=== PATIENT | female | born 1985 | race Hispanic/Latino ===

== ENCOUNTER 2024-11-22 06:56 | Emergency (ER) | payer BC ==
--- NOTE | 2024-11-22 07:52 | RAD REPORT ---
EXAM: Transvaginal OB HISTORY: ABD PAIN COMPARISON: None TECHNIQUE: Multiple grayscale and color Doppler images were obtained in a transabdominal and transvag inal pelvic ultrasound. Spectral analysis of the Doppler waveforms of the ovaries were performed. FINDINGS: UTERUS: No IUP identified. No free fluid is seen in the pelvis. RIGHT OVARY: Corpus luteum in the right ovary. Vascular flow present. LEFT OVARY: Normal flow without focal mass. IMPRESSION: No IUP identified. Therefore, cannot exclude early normal first trimester , failed first tri mester , or early ectopic. Bilateral ovarian blood flow present.
[2024-11-22 07:55] LABS: Absolute Eosinophils 0.1 K/uL (0-0.5); Absolute Lymphocytes (CBC) 1.7 K/uL (0.7-4.9); Absolute Monocytes 0.6 K/uL (0.1-1.3); Absolute Neutrophil 4.3 K/uL (1.8-8.0); Basophils % 0.5 % (0-1.3); Eosinophils % 1.4 % (0-4.4); Hematocrit 42.2 % (36.0-45.0); Hemoglobin 14.6 g/dL (12.0-15.0); Lymphocytes % 25.5 % (15.3-44.8); MCH 28.9 pg (27.0-35.0); MCHC 34.7 g/dL (32.0-36.0); MCV 83.4 fL (80-100); MPV 9.4 fL (7.6-11.3); Monocytes % 8.5 % (3.3-12.3); Neutrophils % 64.1 % (41.7-73.7); Nucleated Red Blood Cells % 0.1 % (0-0); Platelets 291 thou/uL (152-406); RBC Red Blood Cell Count 5.07 M/uL (3.86-4.86); Red Cell Distribution Width 13.2 % (12.1-15.2)
[2024-11-22 08:08] LABS: Anion Gap 11.7 mEq/L (5.0-15.0)
[2024-11-22 08:12] LABS: Potassium 3.7 mEq/L (3.5-5.1)
[2024-11-22 08:19] LABS: Specific Gravity > 1.030 (1.005-1.030); Sqamous Epithelial 20-50 /HPF (None Seen); Urine Bacteria 20-50 /HPF (<20); Urine Bilirubin NEGATIVE (Negative); Urine Blood 3+ (OVER) (Negative); Urine Clarity Extremely Turbid (Clear); Urine Color Light-Brown (Yellow); Urine Culture Reflex Order NOT NEEDED; Urine Glucose 4+ (Over) (Negative); Urine Ketones TRACE (Negative); Urine Microscopic Reflex YN ORDER UMIC; Urine Mucus Slight /HPF (None Seen); Urine Nitrite NEGATIVE (Negative); Urine Protein 1+ (Negative); Urine RBC 21-50 /HPF (None Seen); Urine Urobilinogen Normal (Normal); Urine WBC 20-50 /HPF (<5); Urine pH 5.5 (5.0-7.0)
--- NOTE | 2024-11-22 08:43 | EDPHYS ---
Physician Documentation [facility] Name: Blanca Carvajal Age: 39 yrs Sex: Female : 1985 Arrival Date: 11/22/2024 Time: 06:56 Bed 5 Private MD: ED Physician Rui Tillman HPI: 11/22 07:47 This 39 yrs old Female presents to ER via Ambulatory with complaints of ms3 Abdominal Pain, Low Back Pain. 07:47 39-year-old female with past medical history of diabetes presents to the emergency ms3 department for lower abdominal pain that began at 10 AM. Patient states she had a positive urine test on Wednesday when she developed abdominal pain and bleeding. Patient states symptoms resolved on Wednesday and returned at 10 AM yesterday. Patient states her pain is an 8/10. Patient states she has taken Tylenol without relief. Patient notes her last menstrual period is October 14, 2024. Patient states she is a -0-2-3.. [employer]: 07:16 LMP 10/14/2024, Verified, EDC 07/21/2025, Gestational age from LMP: 5 weeks 4 cm10 days Historical: - Allergies: 07:16 No Known Allergies; cm10 - PMHx: 07:16 Diabetes mellitus; cm10 - Immunization history:: Adult Immunizations up to date. - Infectious Disease History:: Denies. - Social history:: Smoking status: Patient denies any tobacco usage or history of. ROS: 07:47 Constitutional: Negative for fever, and chills. Cardiovascular: Negative for chest ms3 pain, and palpitations. Respiratory: Negative for shortness of breath, cough, wheezing, and pleuritic chest pain, 07:47 Abdomen/GI: Positive for abdominal pain, 07:47 : Positive for vaginal bleeding, Exam: 07:47 Constitutional: This is a well developed, well nourished patient who is awake, alert, ms3 and in no acute distress. Cardiovascular: Regular rate and rhythm with a normal S1 and S2. No gallops, murmurs, or rubs. Normal PMI, no JVD. No pulse deficits. Respiratory: Lungs have equal breath sounds bilaterally, clear to auscultation and percussion. No rales, rhonchi or wheezes noted. No increased work of breathing, no retractions or nasal flaring. Abdomen/GI: Soft, non-tender, with normal bowel sounds. No distension or tympany. No guarding or rebound. No evidence of tenderness throughout. Skin: Warm, dry with normal turgor. Normal color with no rashes, no lesions, and no evidence of cellulitis. MS/ Extremity: Pulses equal, no cyanosis. Neurovascular intact. Full, normal range of motion. Vital Signs: 07:14 BP 145 / 86; Pulse 83; Resp 15; Temp 99.6(O); Pulse Ox 99% on R/A; Weight 67.59 kg; cm10 Height 5 ft. 1 in. ; Pain 8/10; 08:30 BP 131 / 91; Pulse 75; Resp 15; Pulse Ox 100% on R/A; cm10 07:14 Body Mass Index 28.15 (67.59 kg, 154.94 cm) cm10 07:14 Pain Scale: Adult cm10 MDM: 07:14 Medical Screening Exam initiated ms3 07:51 Differential diagnosis: threatened Ab, ectopic , non-specific abd pain. ms3 14:54 Data reviewed: vital signs, nurses notes, lab test result(s), radiologic studies, and ms3 as a result, I will discharge patient. Counseling: I had a detailed discussion with the patient and/or guardian regarding the historical points, exam findings, and any diagnostic results supporting the discharge/admit diagnosis, lab results, radiology results, the need for outpatient follow up, to return to the emergency department if symptoms worsen or persist or if there are any questions or concerns that arise at home. Special discussion: I discussed with the patient/guardian in detail that at this point there is no indication for admission to the hospital. It is understood, however, that if the symptoms persist or worsen the patient needs to return immediately for re-evaluation. ED course: Discussed quantitative hCG of 60 with patient. No intrauterine identified. Discussed necessity with patient to follow-up with [employer] in 2 to 3 days. Patient understands and agrees with plan. All questions were answered. Return precautions discussed include shortness of breath, lightheadedness, worsening pain, worsening symptoms, or any other concerns.. 11/22 07:14 Order name: Abo/rh Typing; Complete Time: 08:24 ms3 11/22 07:14 Order name: Basic Metabolic Panel; Complete Time: 08:24 ms3 11/22 07:14 Order name: CBC with Diff; Complete Time: 08:24 ms3 11/22 07:14 Order name: Test, Serum; Complete Time: 08:24 ms3 11/22 07:14 Order name: Quantitative Hcg; Complete Time: 08:24 ms3 11/22 07:32 Order name: Urinalysis w/ reflexes; Complete Time: 08:24 cm10 11/22 07:14 Order name: US Transvaginal Ob; Complete Time: 07:56 ms3 11/22 07:14 Order name: IV Saline Lock; Complete Time: 07:33 ms3 11/22 07:14 Order name: Labs collected and sent; Complete Time: 07:33 ms3 11/22 07:14 Order name: NPO; Complete Time: 07:14 ms3 11/22 07:38 Order name: Labs - recollect needed: recollect abo\E\rh no charge; Complete Time: 07:53 bd Administered Medications: No medications were administered Disposition Summary: 11/22/24 08:43 Discharge Ordered Notes: Location: Home ms3 Condition: Stable ms3 Diagnosis - Positive test ms3 - Abnormal uterine and vaginal bleeding, unspecified ms3 - Lower abdominal pain, unspecified ms3 - Essential (primary) hypertension ms3 Followup: ms3 - With: Private Physician - When: 2 - 3 days - Reason: Re-evaluation by your physician Discharge Instructions: - Discharge Summary Sheet ms3 - Abdominal Pain, Adult ms3 - Abdominal Pain During ms3 - Threatened Miscarriage, [id number] ms3 Forms: - Medication Reconciliation Form ms3 - Antibiotic Education ms3 - Prescription Opioid Use ms3 - Patient Portal Instructions ms3 - Leadership Thank You Letter ms3 Signatures: Dispatcher [employer] EDMS Sandrine Navas Lynsay, RN RN ll1 Rui Tillman DO DO ms3 Jovanna Murillo RN RN cm10 Corrections: (The following items were deleted from the chart) 07:14 07:14 ABO/RH TYPING+BB.LAB.BRZ ordered. EDMS EDMS 07:14 07:14 BASIC METABOLIC PANEL+C.LAB.BRZ ordered. EDMS EDMS 07:14 07:14 CBC+H.LAB.BRZ ordered. EDMS EDMS 07:14 07:14 TEST, SERUM+SC.LAB.BRZ ordered. EDMS EDMS 07: 07:14 Transvaginal Ob+US.RAD.BRZ ordered. EDMS EDMS 07:15 07:14 QUANTITATIVE HCG+C.LAB.BRZ ordered. EDMS EDMS 07:32 07:32 Urinalysis+U.LAB.BRZ ordered. EDMS EDMS
--- NOTE | 2024-11-22 08:43 | ER ---
Nurse's Notes [facility] Name: Blanca Carvajal Age: 39 yrs Sex: Female : 1985 Arrival Date: 11/22/2024 Time: 06:56 Bed 5 Private MD: Diagnosis: Positive test;Abnormal uterine and vaginal bleeding, unspecified;Lower abdominal pain, unspecified;Essential (primary) hypertension Presentation: 11/22 07:06 Ebola Screen: Patient denies travel to an Ebola-affected area in the 21 days before ll1 illness onset. Initial Sepsis Screen: Does the patient meet any 2 criteria? No. Patient's initial sepsis screen is negative. Does the patient have a suspected source of infection? No. Patient's initial sepsis screen is negative. Risk Assessment: Do you want to hurt yourself or someone else? Patient reports no desire to harm self or others. 07:06 Method Of Arrival: Ambulatory 1 07:06 Acuity: RICARDO 3 1 07:14 Chief complaint: Patient states: Positive test Wednesday. Pt reports having cm10 vaginal bleeding on Wednesday and low abdominal pain onset yesterday. Coronavirus screen: Client denies travel out of the [place] in the last 14 days. Onset of symptoms was November 22, 2024. Triage Assessment: 07:16 General: Appears in no apparent distress. uncomfortable, Behavior is calm, cooperative. cm10 Pain: Complains of pain in right lower quadrant and left lower quadrant Pain currently is 8 out of 10 on a pain scale. Quality of pain is described as aching, pressure. Neuro: No deficits noted. Level of Consciousness is awake, alert, obeys commands, Oriented to person, place, time, situation, Appropriate for age. Respiratory: No deficits noted. Airway is patent Respiratory effort is even, unlabored, Respiratory pattern is regular, symmetrical. : Reports vaginal bleeding that is. STRADDLE BUG: 07:16 LMP 10/14/2024, Verified, EDC 07/21/2025, Gestational age from LMP: 5 weeks 4 cm10 days Historical: - Allergies: 07:16 No Known Allergies; cm10 - PMHx: 07:16 Diabetes mellitus; cm10 - Immunization history:: Adult Immunizations up to date. - Infectious Disease History:: Denies. - Social history:: Smoking status: Patient denies any tobacco usage or history of. Screenin:[address] [facility] ED Fall Risk Assessment (Adult) History of falling in the last 3 months, cm10 including since admission No falls in past 3 months (0 pts) Confusion or Disorientation No (0 pts) Intoxicated or Sedated No (0 pts) Impaired Gait No (0 pts) Mobility Assist Device Used No (0 pt) Altered Elimination No (0 pt) Score/Fall Risk Level 0 - 2 = Low Risk Oriented to surroundings, Maintained a safe environment, Hourly rounding (assess needs \T\ fall precautionary measures) done. Abuse screen: Denies threats or abuse. Denies injuries from another. Nutritional screening: No deficits noted. Tuberculosis screening: No symptoms or risk factors identified. Assessment: 07:21 General: SEE TRIAGE ASSESSMENT. cm10 08:44 Reassessment: Patient appears in no apparent distress at this time. Patient and/or cm10 family updated on plan of care and expected duration. Pain level reassessed. Patient is alert, oriented x 3, equal unlabored respirations, skin warm/dry/pink. 08:51 GI: cm10 Vital Signs: 07:14 BP 145 / 86; Pulse 83; Resp 15; Temp 99.6(O); Pulse Ox 99% on R/A; Weight 67.59 kg; cm10 Height 5 ft. 1 in. ; Pain 8/10; 08:30 BP 131 / 91; Pulse 75; Resp 15; Pulse Ox 100% on R/A; cm10 07:14 Body Mass Index 28.15 (67.59 kg, 154.94 cm) cm10 07:14 Pain Scale: Adult cm10 ED Course: 07:01 Patient arrived in ED. gm2 07:02 Arm band placed on Patient placed in an exam room, on a stretcher. ll1 07:06 Triage completed. ll1 07:08 Jovanna Murillo, OMAR is Primary Nurse. cm10 07:09 Rui Tillman DO is Attending Physician. ms3 07:17 Patient has correct armband on for positive identification. Bed in low position. Call cm10 light in reach. Side rails up X2. Pulse ox on. NIBP on. 07:34 Warm blanket given. am7 07:34 Inserted saline lock: 20 gauge in right antecubital area, using aseptic technique. am7 Blood collected. Flushed with 10 mL NS. 07:44 US Transvaginal Ob In Process Unspecified. EDMS 08:44 No provider procedures requiring assistance completed. intact, bleeding controlled, No cm10 redness/swelling at site. Pressure dressing applied. 08:51 Provided Education on: Follow-up instructions. cm10 Administered Medications: No medications were administered Medication: 07:17 VIS not applicable for this client. cm10 Outcome: 08:43 Discharge ordered by . ms3 08:51 Discharged to home ambulatory, cm10 08:51 Condition: good 08:51 Discharge instructions given to patient, Instructed on discharge instructions, follow up and referral plans. Demonstrated understanding of instructions, follow-up care, 08:51 Patient left the ED. cm10 Signatures: Dispatcher [employer] EDMS Mona Hutchins, RN RN ll1 Rui Tillman, DO DO ms3 Jovanna Murillo RN RN cm10 Stephy Granados gm2 Nova Mckenzie am7
[2024-11-22 09:02] VITALS: TEMP 99.6
[2024-11-22 09:07] VITALS: BP 131/91; O2SAT 100
== END 2024-11-22 08:51 | disposition home or self-care (01) ==
LOC: ER 06:56
DX: O20.9 Hemorrhage in early pregnancy, unspecified (principal); O26.891 Other specified pregnancy related conditions, first trimester; O16.1 Unspecified maternal hypertension, first trimester; Z3A.01 Less than 8 weeks gestation of pregnancy
CPT/HCPCS: 36415; 76817; 80048; 81001; 84702; 84703; 85025; 86900; 86901; 99284